=== PATIENT | male | born 1950 | race Caucasian/White ===

== ENCOUNTER 2017-04-12 05:59 | Day surgery (SDC) | payer OTHER ==
[~2017-04-12] VITALS: Ht 167.6 cm; Wt 87.8 kg
[2017-04-12 07:40] VITALS: Ht 167.6 cm; Wt 87.8 kg
[2017-04-12] MEDS ORDERED: METF-480 PO (07:51)
[2017-04-12] MEDS ORDERED: LOSA50TA6 PO (07:51)
[2017-04-12] MEDS ORDERED: GLIP5TAB13 PO (07:51)
[2017-04-12 07:55] VITALS: BP 168/90; PULSE 58; RESP 20
[2017-04-12] MEDS ORDERED: MIDAZOLAM 1 MG/ML 2 ML INJ ONE ×2 (08:35)
[2017-04-12] MEDS ORDERED: FENTAnyl 50 MCG/ML VIAL ONE (08:36)
--- NOTE | 2017-04-12 08:45 | OPR ---
Date/Time of Note Date/Time of Note DATE: 04/12/17 TIME: 08:38 Operative Report Free Text/Dictation procedure colonoscopy pre op screeninmg colonoscopy post op diverticulosis hemorrhoids poor prep after informed written consent obtained 3mg versed 75 mg fenenyl given scope advanced to cecum severe diverticulosis noted all over the colon poor prep seen mod hemorrhoids seen plan next colonoscopy 10 yrs Procedure Date: Apr 12, 2017 EUFEMIA ROMAN MD Apr 12, 2017 08:45
[2017-04-12 08:58] VITALS: BP 160/82; PULSE 68; RESP 14
== END 2017-04-12 11:49 | disposition home or self-care (01) ==
LOC: GIL 05:59
PROVIDERS: ATTEND Internal Medicine Gastroenterology
DX: Z12.11 Encounter for screening for malignant neoplasm of colon (principal); K57.90 Diverticulosis of intestine, part unspecified, without perforation or abscess without bleeding; K64.9 Unspecified hemorrhoids
CPT/HCPCS: 45378; 82962; J2250; J3010